=== PATIENT | male | born 1990 | race Caucasian/White ===

== ENCOUNTER 2020-04-13 15:01 | Emergency (ER) | payer OTHER ==
[~2020-04-13] VITALS: Ht 167.6 cm; Wt 57.6 kg
[2020-04-13 15:15] VITALS: BP 116/65; Ht 167.6 cm; Wt 57.6 kg
== END 2020-04-13 16:23 | disposition home or self-care (01) ==
LOC: ED 15:01
DX: S90.212A Contusion of left great toe with damage to nail, initial encounter (principal); J45.909 Unspecified asthma, uncomplicated; W20.8XXA Other cause of strike by thrown, projected or falling object, initial encounter; Y93.89 Activity, other specified; Y92.89 Other specified places as the place of occurrence of the external cause; Y99.8 Other external cause status
CPT/HCPCS: Q0092